=== PATIENT | male | born 1935 | race Caucasian/White ===

== ENCOUNTER 2021-04-18 14:00 | Outpatient (RCR) | payer MEDICARE, OTHER, SELFPAY ==
[2021-04-18 14:28] LABS: BUN 27 mg/dL (7-18); Calcium 8.7 mg/dL (8.5-10.1); Glucose 125 mg/dL (74-106)
[2021-04-18 14:29] LABS: ALT 16 U/L (16-63); AST 22 U/L (15-37); Albumin 3.3 g/dL (3.4-5.0); Alkaline Phosphatase 129 U/L (46-116); Anion Gap 6.7 mmol/L (3-11); Bilirubin, Total 0.7 mg/dL (0.2-1.0); CO2 28.3 mmol/L (21.0-32.0); CREATININE 1.6 mg/dL (0.70-1.30); Chloride 104 mmol/L (98-107); Estimated GFR 41.39 (mL/min/1.73m2); Potassium 4.6 mmol/L (3.5-5.1); Sodium 139 mmol/L (136-145)
== END 2021-05-09 23:59 | disposition home or self-care (01) ==
LOC: INF 14:00
PROVIDERS: Visit Provider Nurse Practitioner Adult Health
DX: C61 Malignant neoplasm of prostate (principal)
CPT/HCPCS: 36415; 80053; 84153; 85025